=== PATIENT | female | born 1975 | race African-American/Black ===

== ENCOUNTER 2020-02-17 08:54 | Emergency (ER) | payer OTHER ==
[~2020-02-17] VITALS: Ht 160 cm; Wt 118.2 kg
[2020-02-17] MEDS ORDERED: VENL50TA44 PO (09:06)
[2020-02-17] MEDS ORDERED: HYDR50CA9 PO (09:06)
[2020-02-17] MEDS ORDERED: ARIP5TAB8 PO (09:06)
[2020-02-17 09:58] LABS: BILIRUBIN,URINE NEGATIVE (NEGATIVE); GLUCOSE, URINE (UA) NEGATIVE (NEGATIVE); KETONES,URINE NEGATIVE (NEGATIVE); LEUKOCYTE ESTERASE ,URINE SMALL (NEGATIVE); NITRATE,URINE NEGATIVE (NEGATIVE); OCCULT BLOOD,URINE MODERATE (NEGATIVE); PROTEIN,URINE POS 1+ (NEGATIVE)
[2020-02-17 10:00] LABS: APPEARANCE,URINE SLIGHTLY CLOUDY (CLEAR)
[2020-02-17 10:02] LABS: RBC,URINE 26-50 /HPF (0-2)
[2020-02-17 10:03] LABS: BACTERIA,URINE Few /HPF (None Seen); SQUAMOUS EPITHELIAL CELL,UR Few /LPF (None Seen)
[2020-02-17 10:23] VITALS: BP 104/70
[2020-02-17] MEDS ORDERED: CEPHALEXIN MONOHYDRATE 500 MG CAPSULE PO ONE (10:30)
[2020-02-17] MEDS ORDERED: KETOROLAC TROMETHAMINE 30 MG/ML VIAL IM ONE (10:30)
[2020-02-17] MEDS ORDERED: PHENAZOPYRIDINE HCL 100 MG TABLET PO ONE (10:45)
== END 2020-02-17 11:00 | disposition home or self-care (01) ==
LOC: EMS 08:58
DX: N39.0 Urinary tract infection, site not specified (principal); Z88.5 Allergy status to narcotic agent; Z79.899 Other long term (current) drug therapy
CPT/HCPCS: 81001; 84703; 87077; 87086; 96372; 99283; J1885

== ENCOUNTER 2022-07-28 23:06 | Emergency (ER) | payer OTHER ==
[~2022-07-28] VITALS: Ht 160 cm; Wt 100.0 kg
[2022-07-28 23:06] VITALS: BP 124/54
[~2022-07-28 23:06] MED LIST: ARIP5TAB37 PO; HYDR50CA7 PO; VENL50TA44 PO
[2022-07-29] MEDS ORDERED: CLINDAMYCIN HCL 150 MG CAPSULE PO ONE (01:00)
[2022-07-29] MEDS: ACETAMINOPHEN 500 MG TABLET PO ONE ×2 (01:06→01:08)
[2022-07-29] MEDS ORDERED: IBUPROFEN 600 MG TABLET PO ONE (01:15)
[2022-07-29] MEDS ORDERED: IBUP-1492 PO (01:21)
[2022-07-29] MEDS ORDERED: CLIN-26 PO (01:21)
[2022-07-29] MEDS ORDERED: ACET-3385 PO (01:21)
== END 2022-07-29 01:30 | disposition home or self-care (01) ==
LOC: EMS 23:11
DX: K08.89 Other specified disorders of teeth and supporting structures (principal); Z88.6 Allergy status to analgesic agent; Z98.890 Other specified postprocedural states
CPT/HCPCS: 99283

== ENCOUNTER 2022-08-01 20:03 | Emergency (ER) | payer OTHER ==
[~2022-08-01] VITALS: Ht 160 cm; Wt 102.6 kg
[~2022-08-01 20:03] MED LIST changes: +ACET-3385 PO; +CLIN-26 PO; +IBUP-1492 PO
[2022-08-01] MEDS ORDERED: ALBU18HF12 IH (20:19)
[2022-08-01] MEDS ORDERED: DiphenhydrAMINE HCL 25 MG CAPSULE PO ONE (22:15)
[2022-08-01] MEDS ORDERED: DEXAMETHASONE SOD PHOS 4 MG/ML 5 ML VIAL IM ONE (22:45)
[2022-08-01 23:27] VITALS: BP 108/66
== END 2022-08-01 23:34 | disposition home or self-care (01) ==
LOC: EMS 20:03
DX: T78.40XA Allergy, unspecified, initial encounter (principal); F41.9 Anxiety disorder, unspecified; D57.1 Sickle-cell disease without crisis; Z88.5 Allergy status to narcotic agent; X58.XXXA Exposure to other specified factors, initial encounter; J45.909 Unspecified asthma, uncomplicated
CPT/HCPCS: 99283; 96372; J1100